=== PATIENT | female | born 1995 | race Two or more races ===

== ENCOUNTER 2024-08-22 01:33 | Observation (INO) | payer MEDICAID ==
[~2024-08-22] VITALS: Ht 152.4 cm; Wt 136.1 kg
[2024-08-22] MEDS: LACTATED RINGER'S 1,000 ML IV ONE (02:44)
[2024-08-22] MEDS: ONDANSETRON HCL 4 MG/2 ML VIAL IV ONE (02:44)
--- NOTE | 2024-08-22 03:01 | DVH ---
INDICATION: abd pain TECHNIQUE: Multiple real-time sonographic images were obtained of the right upper quadrant. COMPARISON: None FINDINGS: The liver demonstrates diffusely increased echotexture without focal mass lesions. The live r measures 18.9 cm. Normal hepatopetal portal flow identified. No evidence of pleural effusion or ab dominal ascites. There is no intrahepatic or extrahepatic ductal dilatation. The common duct measures 0.3 cm. The gallbladder is moderately distended and contains multiple mobile gallstones. The gallbladder wall measures 0.2 cm and is within normal limits. Positive sonographic Barreto's sign. The right kidney measures 12.3 cm. The right kidney is normal in contour, size, and shape. The echoge nicity is normal. There is no hydronephrosis. The pancreas is not the visualized. IMPRESSION: 1. Cholelithiasis, gallbladder distention and positive sonographic barreto's sign. These findings may be consistent with acute cholecystitis in the appropriate clinical setting. 2. Hepatomegaly and hepatic steatosis.
[2024-08-22] MEDS ORDERED: PREN1TAB71 PO (03:28)
[2024-08-22] MEDS ORDERED: CEPH250C PO (03:39)
--- NOTE | 2024-08-22 03:56 | DVH ---
INDICATION: abd pain TECHNIQUE: Multiple real-time grayscale transabdominal sonographic images along with color and duplex Doppler of the uterus and ovaries were obtained. COMPARISON: None FINDINGS: Intrauterine gestation at 35 weeks 3 days by dates in cephalic presentation with fundal placenta and no evidence of previa or abruption. Heart rate documented at 134 beats per minute and current FLORENCE equ als 10.2 cm. The cervix is closed and measures 4.2 cm. IMPRESSION: 1. No evidence of previa or abruption.
--- NOTE | 2024-08-22 06:09 | DVHDS2 ---
Discharge Summary Date of Admission Aug 22, 2024 at 01:33 Date of Discharge: Aug 22, 2024 Admitting Diagnosis 35 week symptomatic Gall Stones Brief Hx & Hospital Course: US reasuring fetus ; Gall Bladder Gall Stones swelling chx of cholecystitis Condition at Discharge: Good Final Diagnosis/Problems List 35 wks reasuring FHT , Gall Stones , Abd pain no acute peritoneal signs Discharge Disposition: Home Discharge Instruct/Medications Diet: See Comment Diet comment: LOWFAT DIET Activity: Light activity Scheduled Cephalexin (Keflex Capsule), 500 MG PO QID, (Reported) Vit W/ Ferrous Fumara (Pnv Plus Multivi), 1 TAB PO DAILY, (Reported) Discharge Statement: "Patient was advised to return to the ER or call 911 if any headaches, dizziness, shortness of breath, chest pain, abdominal pain, bleeding, fevers, or worsening of medical condition. Patient was counseled about treatment plan, medications, possible side effects, patientverbalized understanding. All questions were answered to the best of my ability. This discharge took greater then 30 minutes in planning, reviewing documentation, counseling the patient, and discussing with other team members." ASSESSMENT ASSESSMENT Hospital Course Gall stones, Cholecystitis mild no increased WBCs, No peritoneal signs, essentially asymptomatic after hydration anti emetics 35 + weeks Assessment 35 weeks Visit Coding OBGYN Date of Service: Aug 22, 2024 Billing Provider: AIYANA WILKERSON DO TABLE SAW OPERATOR Common Visit Codes: [id number] INP/OBS CARE(HIGH), 13149-CNP/OBS SAME DATE (LOW) TABLE SAW OPERATOR Procedure Codes: 88427-50- NON-STRESS TEST AIYANA WILKERSON DO Aug 22, 2024 06:09
== END 2024-08-22 03:48 | disposition home or self-care (01) ==
LOC: LDRP 01:33
PROVIDERS: ADMIT Obstetrics & Gynecology; ATTEND Obstetrics & Gynecology
DX: O26.613 Liver and biliary tract disorders in pregnancy, third trimester (principal); K80.10 Calculus of gallbladder with chronic cholecystitis without obstruction; Z3A.35 35 weeks gestation of pregnancy; Z98.890 Other specified postprocedural states; Z79.899 Other long term (current) drug therapy
CPT/HCPCS: 59025; 76705; 76815; 81002; 96361; 96374; G0378; J2405; 96360

== ENCOUNTER 2024-09-22 14:42 | Inpatient (IN) | payer MEDICAID ==
[~2024-09-22] VITALS: Ht 160 cm; Wt 142.9 kg
[~2024-09-22 14:42] MED LIST: CEPH250C PO; PREN1TAB71 PO
[2024-09-22] MEDS ORDERED: BUTORPHANOL TARTRATE 2 MG/1 ML VIAL IV PRN ×2 (21:30)
[2024-09-22] MEDS ORDERED: LIDOCAINE 2%HCL (LOCAL ANESTH.) INJ 20ML MDV IJ PRN (21:30)
--- NOTE | 2024-09-22 22:26 | DVH ---
BIOPHYSICAL PROFILE HISTORY: INDUCTION TECHNIQUE: Multiple transabdominal real-time grayscale sonographic images through the gravid uterus of the fetus with duplex Doppler color flow and M-mode spectral analysis FINDINGS: BIOPHYSICAL PROFILE: Score of 8 of 8 including breathing, movement, tone, and FLORENCE. heart rate of 171 beats per minute. position cephalic. FLORENCE of 11. The fundal placenta grade 3. No placenta previa or abruptio. IMPRESSION: 1. Biophysical profile score: 8/8 2. No placenta previa or abruptio.
[2024-09-22 23:21] LABS: Hematocrit 36.3 % (36.0-46.0); Hemoglobin 12.1 g/dL (12.2-16.2); Mean Corpuscular Hemoglobin 28.6 pg (28.0-32.0); Mean Corpuscular Volume 86.1 fL (80.0-100.0); Nucleated Red Blood Cells % 0.1 %
[2024-09-22 23:43] LABS: INR 0.91 (0.9-1.15); Partial Thromboplastin Time 27.2 SEC (24.5-34.5); Prothrombin Time 9.7 sec (9.3-11.8)
[2024-09-22 23:44] LABS: Alanine Aminotransferase 10 U/L (7-40); Albumin 3.6 g/dL (3.2-4.8); Anion Gap 10 (5-15); BUN/Creatinine Ratio 12.3 (10.0-20.0); Bilirubin, Total 0.3 mg/dL (0.2-1.0); Calcium 8.8 mg/dL (8.7-10.4); Carbon Dioxide 23 mmol/L (20-31); Chloride 107 mmol/L (98-107); Glucose 93 mg/dL (74-106); Potassium 3.7 mmol/L (3.5-5.1); Sodium 140 mmol/L (136-145); Total Protein 6.1 g/dL (5.7-8.2)
[2024-09-22 23:45] LABS: Alkaline Phosphatase 163 U/L (46-116); Blood Urea Nitrogen 8 mg/dL (9-23)
[2024-09-23] MEDS: WITCH HAZEL-GLYCERIN PAD TOP PRN (00:31)
[2024-09-23] MEDS: PHISODERM TOP SOLN 240ML BTL TOP PRN (00:31)
[2024-09-23] MEDS: DERMOPLAST 60ML BOTTLE TOP PRN (00:31)
[2024-09-23 01:01] LABS: Urine Protein, UAD TRACE (Negative)
--- NOTE | 2024-09-23 02:20 | DVHHP2 ---
OB CC & HPI Date Date of Admission: Sep 22, 2024 Patient Identification: : 2 Para: 1 EDC: Sep 23, 2024 EGA: 39w 6d Chief Complaints: Reason for admission: induction of labor Indication for induction: other (Elective) Admission Nurse Assessment Rev: Yes History of Present Complaints Ms Humphries presents for scheduled IOL Past Medical History Cardiac: No pertinent Hx Pulmonary: No pertinent Hx Central Nervous System: No pertinent Hx GI: No pertinent Hx Hemotology/Oncology: No pertinent Hx Hepatobiliary: No pertinent Hx Psychiatric: No pertinent Hx Musculoskeletal: No pertinent Hx Rheumotologic: No pertinent Hx Infectious Disease: No peritnent Hx ENT: No pertinent Hx Renal/: No pertinent Hx Endocrine: No pertinent Hx Dermatology: No pertinent Hx Past Surgical History: Gastric bypass OB History OB History Care: Good Care Ultrasounds: Normal mid trimester US Obstetrical Complications: None Medical Complications: Other (Morbid Obesity) Allergies: Coded Allergies: NO KNOWN ALLERGIES (Unverified , 08/22/24) Home Meds Reported Medications Cephalexin (KEFLEX CAPSULE) 250 Mg Cp, 500 MG PO QID 08/22/24 Vit W/ Ferrous Fumara (PNV PLUS MULTIVI) Plus Tab, 1 TAB PO DAILY, TAB 08/22/24 Current Medications Current Medications Medications (Trade) Dose Ordered Sig/Sakina Route PRN Reason Start Time Stop Time Status Last Admin Lactated Ringer's 1,000 ml @ 125 mls/hr Q8H IV 09/22/24 21:30 Witch Anjana (Tucks) 1 pad PRN PRN TOP PERINEAL AREA DISCOMFORT 09/22/24 21:30 09/23/24 00:31 Sodium Lauryl Sulfate (Phisoderm) 240 ml PRN PRN TOP PERINEAL AREA DISCOMFORT 09/22/24 21:30 09/23/24 00:31 Benzocaine (Dermoplast) 1 applic PRN PRN TOP PERINEAL AREA DISCOMFORT 09/22/24 21:30 09/23/24 00:31 Butorphanol Tartrate (Stadol Injection) 1 mg Q4HPRN PRN IV MODERATE PAIN (4-6 PAIN SCALE) 09/22/24 21:30 Butorphanol Tartrate (Stadol Injection) 2 mg Q4HPRN PRN IV SEVERE PAIN (7-10 PAIN SCALE) 09/22/24 21:30 Lidocaine HCl (Xylocaine) 20 ml ONCE PRN IJ PERINEAL AREA DISCOMFORT 09/22/24 21:30 Misoprostol (Cytotec) 50 mcg Q4HPRN PRN PO CERVICAL RIPENING 09/23/24 01:00 Family & Social History Family/Social History Past Family/Social History: Non- pertinent Blood Type: O+ Rubella: immune RPR/VDRL: Negative GBS Status: Negative HBsAG: Negative Review of Systems Constitutional: No symptom reported Ears, Nose, & Throat: No symptom reported Eyes: No symptom reported Pulmonary/Respiratory: No symptom reported Cardiovascular: No symptom reported Gastrointestinal: No symptom reported Genitourinary: No symptom reported Musculoskeletal: No symptom reported Skin: No symptom reported Psychiatric: No symptom reported Endocrine: No symptom reported Hemotologic/Lymphatic: No symptom reported OB Admission Exam Physical Exam HEENT: TMs Normal, Fontanelles Normal, Nasal Mucosa Normal, Eyes non-injected, Oropharynx Normal, Moist Membranes, EOMI Heart: Rhythm Normal Lungs: Clear Abdomen: Non tender Extremities: Normal Reflexes: Normal Cervical Dilatation: None Effacement: 25% Station: -2 Membranes: Intact Accelerations: Accelerations Present Care Home Variability: Average (6-25) Contractions on Admission: None OB Plan Plan Admitting Diagnosis: IUP at 39w 6d Induction of labor Morbid Obesity h/o Gastric Bypass surgery Plan: Induction Induction Methd: Misoprostol protocol Other Plan: IOL process, cervical ripening with medication, cervical ripening balloon, oxytocin etc including the risks, benefits and options discussed with the patient & partner. Informed consent obtained. Risk of pain, bleeding, infection, discussed with the patient and partner Consent for possible blood transfusion obtained. All questions answered. Admit to Place for scheduled IOL Routine L&D admission orders Misoprostol per protocol EFM per policy & protocol Intrauterine resuscitation PRN Labor analgesia PRN Encourage frequent position change and ambulation to facilitate labor & descent Supportive Care Anticipate Visit Coding OBGYN Date of Service: Sep 22, 2024 Billing Provider: ELÍAS MARTINEZ CNM COP BREAKER Common Visit Codes: [id number] INP/OBS CARE (HIGH) COP BREAKER Procedure Codes: 43868-58- NON-STRESS TEST ELÍAS MARTINEZ CNM Sep 23, 2024 02:20
[2024-09-23 02:52] LABS: Amphetamine Screen, Urine Neg (NEGATIVE); Barbiturate Scree,Urine Neg (NEGATIVE); Benzodiazephine Screen, Urine Neg (NEGATIVE); Cannabinoid Screen, Urine Neg (NEGATIVE); Cocaine Screen, Urine Neg (NEGATIVE); Opiate Scree,Urine Neg (NEGATIVE); Phencyclidine Screen, Urine Neg (NEGATIVE)
--- NOTE | 2024-09-23 06:28 | DVHPN2 ---
TED Labor Progress Note Date and Time Seen Date Seen: Sep 23, 2024 Time Seen: 06:05 Subjective Patient reports: No new complaints Objective Vital Signs VSS Monitoring Method Monitoring Method: External Heart Rate Heart Rate Baseline: 130 Heart Rate Variability: Moderate Presence of FHR Accelerations: Yes Presence of FHR Decelerations: No Changes in Trends of Patterns: No Contractions Contractions Frequency: Occasional Contractions Intensity: Mild Contractions Resting Tone: Relaxed Membranes Membranes: Intact Vaginal Exam Vag Exam Deferred: Yes Medications Medications - Pitocin: No Medication - Epidural: No Medication - Other Misoprostol Dose #1 given at 0215 Lab Results Lab Results Current Medications Medications (Trade) Dose Ordered Sig/Sakina Start Time Stop Time Status Last Admin Dose Admin Lactated Ringer's 1,000 ml @ 125 mls/hr Q8H 09/22/24 21:30 [place] Anjana (Tucks) 1 pad PRN PRN 09/22/24 21:30 09/23/24 00:31 1 PAD Sodium Lauryl Sulfate (Phisoderm) 240 ml PRN PRN 09/22/24 21:30 09/23/24 00:31 240 ML Benzocaine (Dermoplast) 1 applic PRN PRN 09/22/24 21:30 09/23/24 00:31 1 APPLIC Butorphanol Tartrate (Stadol Injection) 1 mg Q4HPRN PRN 09/22/24 21:30 Butorphanol Tartrate (Stadol Injection) 2 mg Q4HPRN PRN 09/22/24 21:30 Lidocaine HCl (Xylocaine) 20 ml ONCE PRN 09/22/24 21:30 Misoprostol (Cytotec) 50 mcg Q4HPRN PRN 09/23/24 01:00 09/23/24 02:14 50 MCG Laboratory Tests Test 09/22/24 23:50 09/22/24 23:03 Range/Units Urine Color Yellow Yellow Urine Clarity Clear Clear Urine pH 5.5 5.0-9.0 Urine Specific Fossil 1.030 1.001-1.035 Urine Protein Trace H Negative Urine Ketones 1+ H Negative Urine Blood Negative Negative /uL Urine Nitrite Negative Negative Urine Bilirubin Negative Negative Urine Urobilinogen Normal Negative mg/dL Urine Leukocyte Esterase Negative Negative /uL Urine RBC 1 0 - 4 /hpf Urine Microscopic WBC 2 0-5 /HPF Urine Squamous Epithelial Cells Few <5 /hpf Urine Bacteria None seen None Seen /hpf Urine Mucus Few None Seen Urine Glucose Normal Normal mg/dL Urine Opiates Screen Neg NEGATIVE Urine Fentanyl Screen Neg NEGATIVE Urine Barbiturates Screen Neg NEGATIVE Urine Phencyclidine Screen Neg NEGATIVE Urine Amphetamines Screen Neg NEGATIVE Urine Benzodiazepines Screen Neg NEGATIVE Urine Cocaine Screen Neg NEGATIVE Urine Cannabinoids Screen Neg NEGATIVE White Blood Count 9.9 4.4-10.8 10^3/uL Red Blood Count 4.22 4.0-5.20 10^6/uL Hemoglobin 12.1 L 12.2-16.2 g/dL Hematocrit 36.3 36.0-46.0 % Mean Corpuscular Volume 86.1 80.0-100.0 fL Mean Corpuscular Hemoglobin 28.6 28.0-32.0 pg Mean Corpuscular Hemoglobin Concent 33.3 32.0-36.0 g/dL Red Cell Distribution Width 15.4 H 11.8-14.3 % Platelet Count 232 140-450 10^3/uL Mean Platelet Volume 10.9 H 6.9-10.8 fL Neutrophils (%) (Auto) 72.2 37.0-80.0 % Lymphocytes (%) (Auto) 20.4 10.0-50.0 % Monocytes (%) (Auto) 5.7 0.0-12.0 % Eosinophils (%) (Auto) 1.5 0.0-7.0 % Basophils (%) (Auto) 0.2 0.0-2.0 % Neutrophils # (Auto) 7.2 1.6-8.6 10 ^3/uL Lymphocytes # (Auto) 2.0 0.4-5.4 10 ^3/uL Monocytes # (Auto) 0.6 0-1.3 10 ^3/uL Eosinophils # (Auto) 0.1 0-0.8 10 ^3/uL Basophils # (Auto) 0 0-0.2 10 ^3/uL Nucleated Red Blood Cells 0.1 % Prothrombin Time 9.7 9.3-11.8 sec Prothrombin Time INR 0.91 0.9-1.15 Activated Partial Thromboplast Time 27.2 24.5-34.5 SEC Sodium Level 140 136-145 mmol/L Potassium Level 3.7 3.5-5.1 mmol/L Chloride Level 107 98-107 mmol/L Carbon Dioxide Level 23 20-31 mmol/L Anion Gap 10 5-15 Blood Urea Nitrogen 8 L 9-23 mg/dL Creatinine 0.65 0.550-1.02 mg/dL Glomerular Filtration Rate Calc 121 >90 mL/min BUN/Creatinine Ratio 12.3 10.0-20.0 Serum Glucose 93 74-106 mg/dL Calcium Level 8.8 8.7-10.4 mg/dL Total Bilirubin 0.3 0.2-1.0 mg/dL Aspartate Amino Transferase (AST) 16 13-40 U/L Alanine Aminotransferase (ALT) 10 7-40 U/L Alkaline Phosphatase 163 H 46-116 U/L Total Protein 6.1 5.7-8.2 g/dL Albumin 3.6 3.2-4.8 g/dL Treponema pallidum Antibody Non-reactive Negative Hepatitis C Antibody Negative Negative Assessment Assessment IUP at 40w Morbid Obesity h/o Gastric bypass Surgery Plan Plan Continue with current plan - cervical ripening EFM per policy Intrauterine resuscitation PRN Labor analgesia PRN Frequent position change to facilitate labor Supportive Care Plan discussed with: Patient, Spouse (Patient's mother and sister) Visit Coding OBGYN Date of Service: Sep 23, 2024 Billing Provider: ELÍAS MARTINEZ CNM BILINGUAL ELEMENTARY SCHOOL TEACHER Common Visit Codes: [id number] INP/OBS CARE(HIGH) BILINGUAL ELEMENTARY SCHOOL TEACHER Procedure Codes: 89682-93- NON-STRESS TEST ELÍAS MARTINEZ CNM Sep 23, 2024 06:28
--- NOTE | 2024-09-23 08:41 | DVH ---
LIMITED OB ULTRASOUND > 14 WKS: HISTORY: presentation TECHNIQUE: Multiple real-time grayscale images of the gravid uterus with duplex Doppler color flow an d M-mode spectral analysis. TRANSDUCER: Transabdominal COMPARISON: US BIOPHYSICAL PROFILE on DOS: 09/22/24, US OBSTERICAL LIMITED on DOS: 08/22/24 Findings/ IMPRESSION: Cephalic presentation. Posterior/fundal placenta. heart rate 124 beats per minute. Current FLORENCE 11.5 cm
[2024-09-23] MEDS: LACTATED RINGER'S 1,000 ML IV SCH (16:48)
[2024-09-23] MEDS ORDERED: LACTATED RINGER'S 1,000 ML IV ONE (17:00)
[2024-09-23] MEDS ORDERED: NALOXONE HCL 0.4 MG/ML VIAL IV ONE (17:00)
[2024-09-23] MEDS: ROPIVACAINE HCL 100 ML ONE (18:17)
[2024-09-23] MEDS ORDERED: METHYLERGONOVINE MALEATE 0.2 MG/ML AMP IM PRN (19:00)
[2024-09-23] MEDS ORDERED: CARBOPROST TROMETHAMINE 250 MCG/1ML VIAL IM PRN (19:00)
[2024-09-23] MEDS: LACT. RINGERS/OXYTOCIN 20UNITS 500 ML IV ONE ×2 (19:49)
--- NOTE | 2024-09-23 20:09 | LDN2 ---
Labor and Delivery Note Date 09/23/24 Age 29 2 Para 2 EDC 09/23/24 EGA 40-wk Diagnosis Term , delivered Vaginal Delivery: VTX Vacuum Assisted: No Placenta: Spontaneous Sex: Male Weight Pending Apgars 8/9 Amniotic Fluid: Clear Anesthesia Epidural Episiotomy: No Repaired with N/A EBL 25 mL Labs Blood Bank 09/22/24 23:03: Blood Type O POSITIVE Complications None Comments/Significant Med Marguerite uncomplicated. Pushed x 1 time, easy delivery of baby w/ no complications No lacerations. Mother/baby doing well Visit Coding OBGYN Date of Service: Sep 23, 2024 Billing Provider: STEPHIE DIMAS DO SEED SERVICE ADVISOR Common Visit Codes: PROCEDURE ONLY SEED SERVICE ADVISOR Procedure Codes: [id number] OB CARE,VAG DELIVERY STEPHIE DIMAS DO Sep 23, 2024 20:09
[2024-09-23] MEDS: IBUPROFEN 600 MG TAB PO PRN (22:31)
[2024-09-24] MEDS: ACETAMINOPHEN 325 MG TAB PO PRN (00:02)
[2024-09-24 03:00] VITALS: BP 134/73; PULSE 93; RESP 17; TEMP 98.1; O2SAT 97
--- NOTE | 2024-09-24 04:54 | DVHPN2 ---
Progress Note Date Seen: Sep 24, 2024 Subjective PPD#1 s/p doing well. Pain controlled. Lochia mild vital signs Vital Sign Date Time Temp Pulse Resp B/P (MAP) Pulse Ox O2 Delivery O2 Flow Rate FiO2 09/24/24 03:00 98.1 93 17 134/73 (93) 97 98.1 medications Current Medications Medications Dose Ordered Sig/Sakina Route Start Time Stop Time Status Last Admin Dose Admin James Yeung 1 pad PRN PRN TOP 09/22/24 21:30 09/23/24 00:31 1 PAD Sodium Lauryl Sulfate 240 ml PRN PRN TOP 09/22/24 21:30 09/23/24 00:31 240 ML Benzocaine 1 applic PRN PRN TOP 09/22/24 21:30 09/23/24 00:31 1 APPLIC Butorphanol Tartrate 1 mg Q4HPRN PRN IV 09/22/24 21:30 Cancel Butorphanol Tartrate 2 mg Q4HPRN PRN IV 09/22/24 21:30 Cancel Lidocaine HCl 20 ml ONCE PRN IJ 09/22/24 21:30 Cancel Methylergonovine Maleate 0.2 mg Q8HP PRN IM 09/23/24 19:00 09/25/24 18:59 Cancel Ibuprofen 600 mg Q6HP PRN PO 09/23/24 20:15 09/23/24 22:31 600 MG Acetaminophen 650 mg Q4HP PRN PO 09/23/24 20:15 09/24/24 00:02 650 MG laboratory and microbiology Laboratory Tests 09/22/24 23:03 Test 09/22/24 23:03 Range/Units Serum Glucose 93 74-106 mg/dL Objective O: AFVSS Chest: heart and lung sounds normal. Abd soft, non-tender, fundus firm, BS, no rebound or guarding, Ext Neg Homans, Non-tender, edema Lochia - minimal Labs reviewed Assessment/Plan PPD#1 s/p , doing well Plan: Continue supportive care, possible D/C after 24h Plan discussed with: Patient, Spouse Visit Coding OBGYN Date of Service: Sep 24, 2024 Billing Provider: STEPHIE DIMAS DO TIE SAWYER Common Visit Codes: [id number] INP/OBS CARE(MOD) STEPHIE DIMAS DO Sep 24, 2024 04:54
[2024-09-24 08:40] VITALS: BP 105/68; PULSE 98; RESP 18; TEMP 97.8; O2SAT 100
[2024-09-24 10:41] VITALS: BP 117/70; PULSE 92; RESP 18; TEMP 97.9; O2SAT 100
[2024-09-24 14:52] VITALS: BP 132/87; PULSE 77; RESP 17; TEMP 98.2; O2SAT 98
[2024-09-24 19:00] VITALS: BP 117/69; PULSE 96; RESP 16; TEMP 98.4; O2SAT 97
[2024-09-24] MEDS ORDERED: IBU600T PO (20:16)
--- NOTE | 2024-09-24 20:18 | DVHDS2 ---
Physician Discharge Progress N Final Diagnosis: Term , delivered Secondary Diagnosis: Morbid obesity Operations or Procedures: Operations or Procedures Elective labor induction with Commentary: Commentary Normal labor and delivery s/p uncomplicated repair of 2nd deg vaginal laceration Normal course Condition on Discharge: Stable Disposition: Home Discharge Instructions: Diet: Regular Activity: Light activity Activity comment: Pelvic rest x 6 wk Follow Up/Referral: with Dr Tavarez in 2-3 wk Medications: Ibuprofen PRN Follow Up Care: Discharge Statement: "Patient was advised to return to the ER or call 911 if any headaches, dizziness, shortness of breath, chest pain, abdominal pain, bleeding, fevers, or worsening of medical condition. Patient was counseled about treatment plan, medications, possible side effects, patientverbalized understanding. All questions were answered to the best of my ability. This discharge took greater then 30 minutes in planning, reviewing documentation, counseling the patient, and discussing with other team members." Visit Coding OBGYN Date of Service: Sep 24, 2024 Billing Provider: STEPHIE DIMAS DO VIDEOGRAPHER Common Visit Codes: 91403-LVP/OBS DISCH DAY <30MIN STEPHIE DIMAS DO Sep 24, 2024 20:18
[2024-09-24] MEDS: TETANUS-DIPTH-ACEL PERTUSSIS 0.5ML SYR Tdap IM ONE (20:31)
== END 2024-09-24 21:14 | disposition home or self-care (01) | DRG 560 ==
LOC: OBSVTOIN 21:17 → LDRP 21:17
PROVIDERS: ADMIT Obstetrics & Gynecology; ATTEND Obstetrics & Gynecology
PROC: 10E0XZZ Delivery of Products of Conception, External Approach (ICD-10-PCS; principal; 2024-09-23)
PROC: 0KQM0ZZ Repair Perineum Muscle, Open Approach (ICD-10-PCS; 2024-09-23)
PROC: 3E0R3BZ Introduction of Anesthetic Agent into Spinal Canal, Percutaneous Approach (ICD-10-PCS; 2024-09-23)
PROC: 00HU33Z Insertion of Infusion Device into Spinal Canal, Percutaneous Approach (ICD-10-PCS; 2024-09-23)
DX: O99.214 Obesity complicating childbirth (principal); Z37.0 Single live birth; E66.01 Morbid (severe) obesity due to excess calories; O99.844 Bariatric surgery status complicating childbirth; O70.1 Second degree perineal laceration during delivery; Z3A.40 40 weeks gestation of pregnancy
CPT/HCPCS: 36415; 59025; 59409; 62282; 76815; 76819; 80053; 80307; 81001; 81002; 85025; 85610; 85730; 86780; 86803; 86850; 86900; 86901; 90715; 94760; 94762; 96360; 96361; 96366; G0378; J2590